=== PATIENT | female | born 1985 | race Caucasian/White ===

== ENCOUNTER → 2017-06-16 | Outpatient (CLI) | payer BC ==
[2017-06-16 15:10] LABS: CH 29.2; CHCM 33.2; HCT 39.7 % (34.0-46.0); HDW 2.25; HGB 12.9 gm/dL (11.4-16.0); MCH 28.7 pg (25.0-35.0); MCHC 32.4 g/dL (31.0-37.0); MCV 88.4 fL (80.0-100.0); Mean Platelet Volume 8.7; RDW 13.3 % (11.5-15.5); WBC 10.3 k/uL (3.8-10.6)
[2017-06-16 15:14] LABS: ALT 31 U/L (9-52); AST 20 U/L (14-36); Alkaline Phosphatase 59 U/L (38-126); Bilirubin, Delta 0.2 mg/dL (0.0-0.2); Glucose 85 mg/dL (74-99); Non-African American GFR(MDRD) >60 (>60 ml/min/1.73 sqM); Total Bilirubin 0.2 mg/dL (0.2-1.3); Total Protein 6.9 g/dL (6.3-8.2)
[2017-06-16 15:45] LABS: Hepatitis B Surface Ag Index 0.05
[2017-06-16 19:39] LABS: Treponemal Ab Non-Reactive (Non-Reactive)
== END | disposition home or self-care (01) ==
LOC: LABWHC1 14:04
PROVIDERS: ATTEND Obstetrics & Gynecology
DX: O26.811 Pregnancy related exhaustion and fatigue, first trimester (principal); Z3A.00 Weeks of gestation of pregnancy not specified
CPT/HCPCS: 36415; 80076; 82565; 82947; 85027; 86762; 86780; 86850; 86900; 86901; 87340; 87390

== ENCOUNTER → 2017-06-29 | Outpatient (CLI) | payer BC ==
[2017-06-29 14:09] LABS: ALT 31 U/L (9-52); AST 21 U/L (14-36); Alkaline Phosphatase 52 U/L (38-126); Bilirubin, Delta 0.1 mg/dL (0.0-0.2); LDH 365 U/L (313-618); Non-African American GFR(MDRD) >60 (>60 ml/min/1.73 sqM); Total Bilirubin 0.2 mg/dL (0.2-1.3); Total Protein 6.8 g/dL (6.3-8.2); Uric Acid 3.2 mg/dL (3.7-7.4)
== END | disposition home or self-care (01) ==
LOC: LABWHC1 13:30
PROVIDERS: ATTEND Obstetrics & Gynecology
DX: O10.919 Unspecified pre-existing hypertension complicating pregnancy, unspecified trimester (principal); Z3A.00 Weeks of gestation of pregnancy not specified
CPT/HCPCS: 36415; 80076; 81050; 82565; 83615; 84156; 84550

== ENCOUNTER → 2018-10-23 | Outpatient (CLI) | payer BC ==
--- NOTE | 2018-10-23 15:57 | US ---
EXAMINATION TYPE: US thyroid st tissue head/neck DATE OF EXAM: 10/23/2018 COMPARISON: NONE CLINICAL HISTORY: E04.1 SINGLE THYROID NODULE. Family history of thyroid CA GLAND SIZE: Right Lobe: 5.0 x 1.6 x 1.9 cm Overall Parenchyma: homogenous Left Lobe: 5.0 x 1.5 x 1.5 cm Overall Parenchyma: homogeneous Isthmus Thickness: 0.2 cm NODULES RIGHT: # of nodules measured on right: 0 LEFT: # of nodules measured on left: 0 ISTHMUS: # of nodules measured in the isthmus: 0 Bilateral neck scanned, no evidence of lymphadenopathy. Homogeneous normal-sized thyroid is identified without discrete nodules. IMPRESSION: As above, unremarkable study.
== END | disposition home or self-care (01) ==
LOC: RADUSWWP 15:31
PROVIDERS: ATTEND Family Medicine
DX: E04.1 Nontoxic single thyroid nodule (principal)
CPT/HCPCS: 76536

== ENCOUNTER 2020-09-02 01:56 | Emergency (ER) | payer BC ==
[2020-09-02] MEDS ORDERED: SODIUM CHLORIDE 0.9% 1,000 ML IV STA (02:16)
[2020-09-02] MEDS ORDERED: ONDANSETRON 4 MG/2 ML VIAL IVP STA (02:16)
[2020-09-02] MEDS ORDERED: KETOROLAC 15 MG/ML 1 ML VIAL IVP STA (02:20)
--- NOTE | 2020-09-02 02:35 | ED ---
General Adult HPI - General Source: patient Mode of arrival: ambulatory Limitations: no limitations <Tenisha Tamez - Last Filed: 09/02/20 02:50> <Santi Amado - Last Filed: 09/02/20 04:46> - General Chief complaint: Abdominal Pain Stated complaint: Fever, abdominal pain Time Seen by Provider: 09/02/20 02:06 - History of Present Illness Initial comments: 34-year-old female presents to the emergency Department with complaints of left upper quadrant abdominal pain she describes as a pressure, onset yesterday morning. Patient states she woke up with mild discomfort under her ribs that waxed and waned throughout the day. States Motrin did help with her pain, however she developed a fever this evening (T-max 102.1), and also has left lower quadrant abdominal pain as well. Additionally, patient does report heartburn and mild nausea. Patient denies any recent rash, chills, cough, shortness of breath, chest pain, vomiting, diarrhea, constipation, numbness, tingling, dizziness, weakness, hematuria, dysuria, urinary urgency, urinary frequency, headache, visual changes, or any other complaints. (Tenisha Tamez) - Related Data Home Medications Medication Instructions Recorded Confirmed Omeprazole [PriLOSEC] 20 mg PO HS 02/04/16 01/03/18 Multivitamin [Multivitamins Adult 1 each PO DAILY 01/03/18 01/03/18 Gummies] Previous Rx's Medication Instructions Recorded Ibuprofen [Motrin] 600 mg PO Q6HR PRN #40 tab 01/05/18 Amoxic-Pot Clav 875-125Mg 1 tab PO Q12HR 1 Days #14 tab 09/02/20 [Augmentin 875-125] Allergies Allergy/AdvReac Type Severity Reaction Status Date / Time No Known Allergies Allergy Verified 09/02/20 02:03 Review of Systems ROS Other: All systems not noted in ROS Statement are negative. <Tenisha Tamez - Last Filed: 09/02/20 02:50> ROS Other: All systems not noted in ROS Statement are negative. <Santi Amado - Last Filed: 09/02/20 04:46> ROS Statement: Those systems with pertinent positive or pertinent negative responses have been documented in the HPI. Past Medical History Past Medical History: Hypertension Additional Past Medical History / Comment(s): Patient has a history of hypertension prepregnancy. Was not on any medications until approximately 32 weeks' gestation History of Any Multi-Drug Resistant Organisms: None Reported Past Surgical History: Adenoidectomy, Tonsillectomy Past Anesthesia/Blood Transfusion Reactions: No Reported Reaction Past Psychological History: Depression Smoking Status: Never smoker Past Alcohol Use History: Occasional Past Drug Use History: None Reported - Past Family History Father Family Medical History: Hypertension <Tenisha Tamez - Last Filed: 09/02/20 02:50> General Exam Limitations: no limitations (Well-developed, well-nourished female in no acute distress. Initial temperature 99.3F, pulse 139, respirations 20, blood pressure 158/92, pulse ox 97% on room air.) General appearance: alert, in no apparent distress Respiratory exam: Present: normal lung sounds bilaterally. Absent: respiratory distress, wheezes, rales, rhonchi, stridor Cardiovascular Exam: Present: regular rate, tachycardia, normal heart sounds. Absent: systolic murmur, diastolic murmur, rubs, gallop, clicks GI/Abdominal exam: Present: soft, tenderness (Diffuse left lower quadrant tenderness upon palpation), normal bowel sounds. Absent: distended Neurological exam: Present: alert, oriented X3, CN II-XII intact Psychiatric exam: Present: normal affect, normal mood Skin exam: Present: warm, dry, intact, normal color. Absent: rash <Tenisha Tamez - Last Filed: 09/02/20 02:50> Course Vital Signs 09/02/20 01:59 Temperature 99.3 F Pulse Rate 139 H Respiratory 20 Rate Blood Pressure 158/92 O2 Sat by Pulse 97 Oximetry Medical Decision Making <Tenisha Tamez - Last Filed: 09/02/20 02:50> - Lab Data Result diagrams: 09/02/20 03:11 09/02/20 03:11 <Santi Amado - Last Filed: 09/02/20 04:46> - Medical Decision Making 34 year-old female patient presents to the emergency department today for eval uation of left sided abdominal pain and fever. She reported a couple episodes of diarrhea over the last couple of days. States pain is worsened throughout the day. Also reports had a temperature 102.0F this evening. Labs and CT ordered. Care will be handed over to my attending Dr. Amado for management until disposition. (Tenisha Tamez) I saw this patient in conjunction with the nurse practitioner. I performed independent history and physical exam. Agree with case management. I discussed the results with the patient who states she is feeling a bit better following analgesic. Discussed admission versus outpatient follow-up and at this point the patient will prefer to follow up as outpatient. We did start antibiotic here for possibility of infectious colitis. Discussed appropriate further care and follow-up as well as return parameters. (Santi Amado) - Lab Data Lab Results 09/02/20 09/02/20 09/02/20 Range/Units 03:11 03:11 03:11 WBC 15.1 H (3.8-10.6) k/uL RBC 4.83 (3.80-5.40) m/uL Hgb 13.5 (11.4-16.0) gm/dL Hct 41.5 (34.0-46.0) % MCV 86.1 (80.0-100.0) fL MCH 28.0 (25.0-35.0) pg MCHC 32.5 (31.0-37.0) g/dL RDW 12.6 (11.5-15.5) % Plt Count 217 (150-450) k/uL MPV 8.5 Neutrophils % 78 % Lymphocytes % 14 % Monocytes % 5 % Eosinophils % 1 % Basophils % 1 % Neutrophils # 11.8 H (1.3-7.7) k/uL Lymphocytes # 2.0 (1.0-4.8) k/uL Monocytes # 0.8 (0-1.0) k/uL Eosinophils # 0.2 (0-0.7) k/uL Basophils # 0.1 (0-0.2) k/uL Sodium 139 (137-145) mmol/L Potassium 4.2 (3.5-5.1) mmol/L Chloride 105 (98-107) mmol/L Carbon Dioxide 26 (22-30) mmol/L Anion Gap 8 mmol/L BUN 12 (7-17) mg/dL Creatinine 0.68 (0.52-1.04) mg/dL Est GFR (CKD-EPI)AfAm >90 (>60 ml/min/1.73 sqM) Est GFR (CKD-EPI)NonAf >90 (>60 ml/min/1.73 sqM) Glucose 105 H (74-99) mg/dL Calcium 9.3 (8.4-10.2) mg/dL Total Bilirubin 0.6 (0.2-1.3) mg/dL AST 24 (14-36) U/L ALT 27 (4-34) U/L Alkaline Phosphatase 63 (38-126) U/L Total Protein 7.4 (6.3-8.2) g/dL Albumin 4.3 (3.5-5.0) g/dL Lipase 100 (23-300) U/L Urine Color Light Yellow Urine Appearance Clear (Clear) Urine pH 7.5 (5.0-8.0) Ur Specific [place] 1.010 (1.001-1.035) Urine Protein Negative (Negative) Urine Glucose (UA) Negative (Negative) Urine Ketones Negative (Negative) Urine Blood Negative (Negative) Urine Nitrite Negative (Negative) Urine Bilirubin Negative (Negative) Urine Urobilinogen <2.0 (<2.0) mg/dL Ur Leukocyte Esterase Negative (Negative) Urine HCG, Qual (Not Detectd) Coronavirus (PCR) (Not Detectd) 09/02/20 09/02/20 Range/Units 03:11 03:15 WBC (3.8-10.6) k/uL RBC (3.80-5.40) m/uL Hgb (11.4-16.0) gm/dL Hct (34.0-46.0) % MCV (80.0-100.0) fL MCH (25.0-35.0) pg MCHC (31.0-37.0) g/dL RDW (11.5-15.5) % Plt Count (150-450) k/uL MPV Neutrophils % % Lymphocytes % % Monocytes % % Eosinophils % % Basophils % % Neutrophils # (1.3-7.7) k/uL Lymphocytes # (1.0-4.8) k/uL Monocytes # (0-1.0) k/uL Eosinophils # (0-0.7) k/uL Basophils # (0-0.2) k/uL Sodium (137-145) mmol/L Potassium (3.5-5.1) mmol/L Chloride (98-107) mmol/L Carbon Dioxide (22-30) mmol/L Anion Gap mmol/L BUN (7-17) mg/dL Creatinine (0.52-1.04) mg/dL Est GFR (CKD-EPI)AfAm (>60 ml/min/1.73 sqM) Est GFR (CKD-EPI)NonAf (>60 ml/min/1.73 sqM) Glucose (74-99) mg/dL Calcium (8.4-10.2) mg/dL Total Bilirubin (0.2-1.3) mg/dL AST (14-36) U/L ALT (4-34) U/L Alkaline Phosphatase (38-126) U/L Total Protein (6.3-8.2) g/dL Albumin (3.5-5.0) g/dL Lipase (23-300) U/L Urine Color Urine Appearance (Clear) Urine pH (5.0-8.0) Ur Specific [place] (1.001-1.035) Urine Protein (Negative) Urine Glucose (UA) (Negative) Urine Ketones (Negative) Urine Blood (Negative) Urine Nitrite (Negative) Urine Bilirubin (Negative) Urine Urobilinogen (<2.0) mg/dL Ur Leukocyte Esterase (Negative) Urine HCG, Qual Not Detected (Not Detectd) Coronavirus (PCR) Not Detected (Not Detectd) Disposition <Tenisha Tamez - Last Filed: 09/02/20 02:50> Is patient prescribed a controlled substance at d/c from ED?: No <Santi Amado - Last Filed: 09/02/20 04:46> Clinical Impression: Abdominal pain, Colitis Disposition: HOME SELF-CARE Condition: Good Instructions (If sedation given, give patient instructions): Abdominal Pain (ED), Colitis (ED) Prescriptions: Amoxic-Pot Clav 875-125Mg [Augmentin 875-125] 1 tab PO Q12HR 1 Days #14 tab Referrals: Ezra Hensley MD [Primary Care Provider] - 1-2 days Marlee Rubin MD [STAFF PHYSICIAN] - 1-2 days
[2020-09-02 03:31] LABS: Basophils # (A) 0.1 k/uL (0-0.2); Basophils % (A) 1 %; Eosinophils # (A) 0.2 k/uL (0-0.7); Eosinophils % (A) 1 %; HCT 41.5 % (34.0-46.0); HGB 13.5 gm/dL (11.4-16.0); Lymphocytes % (A) 14 %; MCHC 32.5 g/dL (31.0-37.0); MCV 86.1 fL (80.0-100.0); Mean Platelet Volume 8.5; Monocytes # (A) 0.8 k/uL (0-1.0); Monocytes % (A) 5 %; Neutrophils # (A) 11.8 k/uL (1.3-7.7); Neutrophils % (A) 78 %; Platelet Count 217 k/uL (150-450); RBC 4.83 m/uL (3.80-5.40); RDW 12.6 % (11.5-15.5); WBC 15.1 k/uL (3.8-10.6)
[2020-09-02 03:32] LABS: Appearance,Urine Clear (Clear); Bilirubin,Urine Negative (Negative); Blood,Urine Negative (Negative); Color,Urine Light Yellow; Glucose,Urine (UA) Negative (Negative); Ketones,Urine Negative (Negative); Leukocyte Esterase,Urine Negative (Negative); Nitrite,Urine Negative (Negative); PH, Urine 7.5 (5.0-8.0); Protein,Urine Negative (Negative); Urobilinogen,Urine <2.0 mg/dL (<2.0)
[2020-09-02 03:42] LABS: ALT 27 U/L (4-34); AST 24 U/L (14-36); African American GFR (CKD) >90 (>60 ml/min/1.73 sqM); Albumin 4.3 g/dL (3.5-5.0); Alkaline Phosphatase 63 U/L (38-126); Anion Gap 8 mmol/L; Blood Urea Nitrogen 12 mg/dL (7-17); Calcium 9.3 mg/dL (8.4-10.2); Carbon Dioxide 26 mmol/L (22-30); Chloride 105 mmol/L (98-107); Glucose 105 mg/dL (74-99); Lipase 100 U/L (23-300); Non-African American GFR(CKD) >90 (>60 ml/min/1.73 sqM); Potassium 4.2 mmol/L (3.5-5.1); Sodium 139 mmol/L (137-145); Total Bilirubin 0.6 mg/dL (0.2-1.3); Total Protein 7.4 g/dL (6.3-8.2)
--- NOTE | 2020-09-02 04:35 | CT ---
EXAM: CT Abdomen and Pelvis With Intravenous Contrast CLINICAL HISTORY: ITS.REASON CT Reason: LLQ tenderness, fever TECHNIQUE: Axial computed tomography images of the abdomen and pelvis with intravenous contrast. CTDI is 27.47 mGy and DLP is 1304.40 mGy-cm. This CT exam was performed using one or more of the following dose reduction techniques: automated exposure control, adjustment of the mA and/or kV according to patient size, and/or use of iterative reconstruction technique. COMPARISON: No relevant prior studies available. FINDINGS: Lung bases: Unremarkable. No mass. No consolidation. Mediastinum: Mild hiatal hernia. ABDOMEN: Liver: Unremarkable. No mass. Gallbladder and bile ducts: Unremarkable. No calcified stones. No ductal dilation. Pancreas: Unremarkable. No mass. No ductal dilation. Spleen: Unremarkable. No splenomegaly. Adrenals: Unremarkable. No mass. Kidneys and ureters: The kidneys symmetrically enhance. There is a 1. 1 cm right lower pole renal cyst. No hydronephrosis. Stomach and bowel: Moderate focal segment of colitis of the proximal descending colon, consisting of circumferential wall thickening spanning a distance of approximately 5.9 cm proximal-distal. Associated, moderate pericolonic fluid/induration, which is located adjacent to the left adrenal gland and posterior to the pancreas. No perforation or abscess. Mild diverticulosis, without acute diverticulitis. No small bowel obstruction. PELVIS: Appendix: Normal appendix. Bladder: Unremarkable. No mass. Reproductive: Normal CT appearance of the uterus and bilateral ovaries. ABDOMEN and PELVIS: Intraperitoneal space: Unremarkable. No free air. No significant fluid collection. Bones/joints: No acute fracture. No dislocation. Soft tissues: Small fat-containing umbilical hernia. Vasculature: Unremarkable. No abdominal aortic aneurysm. Lymph nodes: Unremarkable. No enlarged lymph nodes. IMPRESSION: 1. Moderate focal segment of colitis of the proximal descending colon, consisting of circumferential wall thickening spanning a distance of approximately 5.9 cm proximal-distal. Associated, moderate pericolonic fluid/induration, which is located adjacent to the left adrenal gland and posterior to the pancreas. No perforation or abscess. 2. Mild diverticulosis, without acute diverticulitis. No small bowel obstruction. Normal appendix. 3. Mild hiatal hernia.
[2020-09-02] MEDS ORDERED: AMOXIC-POT CLAV 875MG STARTER PACK 2 TAB BTL PO STA (04:39)
[2020-09-02 04:49] VITALS: BP 150/86; PULSE 98; RESP 18; TEMP 99
== END 2020-09-02 04:54 | disposition home or self-care (01) ==
LOC: EC 01:56
DX: K52.9 Noninfective gastroenteritis and colitis, unspecified (principal); Z79.899 Other long term (current) drug therapy; Z20.828 Contact with and (suspected) exposure to other viral communicable diseases
CPT/HCPCS: 36415; 80053; 83605; 83690; 85025; 81003; 81025; 87040; 87635; 74177; 99284; 96374; 96375; 96361; J2405; J1885; Q9967

== ENCOUNTER → 2020-09-08 | Outpatient (CLI) | payer BC ==
[2020-09-08 11:58] LABS: Basophils # (A) 0.1 k/uL (0-0.2); Basophils % (A) 1 %; Eosinophils # (A) 0.3 k/uL (0-0.7); Eosinophils % (A) 4 %; HCT 42.4 % (34.0-46.0); HGB 13.6 gm/dL (11.4-16.0); Lymphocytes # (A) 2.1 k/uL (1.0-4.8); Lymphocytes % (A) 29 %; MCH 27.7 pg (25.0-35.0); MCHC 32.1 g/dL (31.0-37.0); MCV 86.4 fL (80.0-100.0); Mean Platelet Volume 7.8; Monocytes # (A) 0.3 k/uL (0-1.0); Monocytes % (A) 4 %; Neutrophils # (A) 4.5 k/uL (1.3-7.7); Neutrophils % (A) 61 %; Platelet Count 293 k/uL (150-450); RBC 4.91 m/uL (3.80-5.40); RDW 12.6 % (11.5-15.5); WBC 7.4 k/uL (3.8-10.6)
[2020-09-08 13:28] LABS: Erythrocyte Sedimentation Rate 22 mm/hr (0-20)
[2020-09-08 19:19] LABS: Anti-DNA, DS unit <1.0 IU/mL; DNA Double-Stranded NEGATIVE (NEGATIVE)
[2020-09-08 20:43] LABS: % Iron Saturation 11.04 (12.00-45.00); ALT 22 U/L (8-44); AST 24 U/L (13-35); African American GFR (CKD) 110.7 (60.0-200.0); Albumin/Globulin Ratio 1.73 (1.60-3.17); Alkaline Phosphatase 71 U/L (41-126); BUN/Creat Ratio 11.25 Ratio (12.00-20.00); Calcium 10.1 mg/dL (8.7-10.3); Carbon Dioxide 27.7 mmol/L (21.6-31.8); Chloride 105 mmol/L (96-109); Globulin 2.6 g/dL (1.6-3.3); Glucose 84 mg/dL (70-110); Iron 36 ug/dL (50-170); Non-African American GFR(CKD) 95.5 (60.0-200.0); Potassium 4.5 mmol/L (3.5-5.5); Rheumatoid Factor, Qnt <4 IU/mL (0-13); Sodium 140 mmol/L (135-145); Total Bilirubin 0.2 mg/dL (0.3-1.2); Total Iron Binding Capacity 326 ug/dL (228-460); Total Protein 7.1 g/dL (6.2-8.2)
[2020-09-08 20:49] LABS: Ferritin 59.4 ng/mL (10.0-291.0)
[2020-09-08 21:26] LABS: Folate, Serum 14.9 ng/mL
[2020-09-09 10:40] LABS: Angiotensin-1 Converting Enz. 55 U/L (8-52)
[2020-09-09 14:26] LABS: HLA B27 NEGATIVE
== END | disposition home or self-care (01) ==
LOC: LABWHC1 10:31
PROVIDERS: ATTEND Family Medicine
DX: K52.9 Noninfective gastroenteritis and colitis, unspecified (principal); M25.50 Pain in unspecified joint; R53.83 Other fatigue
CPT/HCPCS: 36415; 80053; 82164; 82607; 82728; 82746; 83540; 83550; 83735; 84630; 85025; 85652; 86038; 86225; 86431; 86812

== ENCOUNTER 2020-10-19 09:03 | Day surgery (SDC) | payer BC ==
[2020-10-14 16:10] VITALS: BMI 33.9
[~2020-10-19 09:03] MED LIST: LACTATED RINGERS 1,000 ML IV SCH; LIDOCAINE 1% (10MG/ML) FOR IV START INTRADERMA PRN
[2020-10-19 09:31] VITALS: RESP 16; TEMP 98.9
[2020-10-19] MEDS ORDERED: fentaNYL (PF) 50 MCG/ML 2 ML AMP ONE (10:12)
[2020-10-19] MEDS ORDERED: MIDAZOLAM 2 MG/2 ML VIAL ONE (10:12)
[2020-10-19] MEDS ORDERED: LIDOCAINE 1% INJ 10MG/ML (20 ML MDV) ONE (10:12)
[2020-10-19] MEDS ORDERED: PROPOFOL 10 MG/ML 20 ML VIAL IV ONE (10:12)
--- NOTE | 2020-10-19 10:51 | P.PCN ---
Date of Procedure: 10/19/20 Description of Procedure: Brief history: Patient is a pleasant 35-year-old female presenting for outpatient colonoscopy EGD for evaluation of noninfected gastroenteritis and colitis and heartburn. She had been seen in the hospital at which time she presented complaining of nonbloody diarrhea and abdominal pain. Computed tomography scan of the abdomen showed descending colitis and left-sided diverticulosis without diverticulitis. She was treated with antibiotics and is doing better. She has a history of heartburn and will usually take [id number] antacids approximately 3 times per week. Procedure performed: Esophagogastroduodenoscopy with biopsy Colonoscopy Estimated blood loss: Minimal. Preoperative diagnosis: Heartburn, noninfective gastroenteritis and colitis Anesthesia: MAC Procedure: After informed consent was obtained from the patient was brought into the endoscopy unit and IV sedation was administered by anesthesia under continuous monitoring. Initially upper endoscopy was done. The Olympus GF 190 video endoscope was inserted into the mouth and esophagus intubated without any difficulty and was gradually advanced into the stomach and duodenum and carefully examined. The bulb and second part of the duodenum appeared normal, with biopsies taken to rule out celiac sprue. The scope was then withdrawn into the stomach adequately insufflated with air and upon careful examination the antrum and body, cardia and fundus appeared normal, except for some mild punctate erythema in the antrum and body suggestive of mild gastritis with biopsies taken. The scope was then withdrawn into the esophagus. The GE junction was located at 38 cm to the incisors, and biopsied. It appeared regular with no erythema erosions or ulcerations. Rest of the esophagus appeared normal. Patient tolerated the procedure well. At this time the patient continued to remain sedation. Initial digital rectal examination was normal. Olympus CF 190 video colonoscope was then inserted into the rectum and gradually advanced to the cecum without any difficulty. Careful examination was performed as the scope was gradually being withdrawn. The prep was excellent. The cecum, ascending colon, transverse colon, descending colon, sigmoid colon and rectum appeared normal, and normal-appearing terminal ileum. Retroflexion was performed in the rectum and no lesions were noted, low-grade internal. Patient tolerated the procedure well. Impression: 1. Mild gastritis. Biopsies of the duodenum, antrum body and GE junction. 2. Normal-appearing colon from rectum to cecum and normal-appearing terminal ileum. Recommendations: Findings of this examination were discussed with the patient. Okay to resume diet. Okay to resume medications. Await pathology from biopsies. Follow up in the GI clinic as previously scheduled for results of biopsies and further management.
[2020-10-19 11:12] VITALS: BP 103/57; PULSE 66
== END 2020-10-19 11:30 | disposition home or self-care (01) ==
LOC: ORWHC2ENDO 09:03
PROVIDERS: ATTEND Internal Medicine
DX: K29.50 Unspecified chronic gastritis without bleeding (principal); D72.10 Eosinophilia, unspecified; K21.9 Gastro-esophageal reflux disease without esophagitis; K52.9 Noninfective gastroenteritis and colitis, unspecified; K31.89 Other diseases of stomach and duodenum; Z90.89 Acquired absence of other organs
CPT/HCPCS: 81025; 88305; 45378; 43239; J2250; J2001; J3010; J2704

== ENCOUNTER → 2020-12-21 | Outpatient (CLI) | payer BC ==
[2020-12-21 08:22] LABS: C Reactive Protein 5.9 mg/L (<10.0); Calcium 9.5 mg/dL (8.4-10.2)
--- NOTE | 2020-12-21 14:53 | CT ---
EXAMINATION TYPE: CT chest w con DATE OF EXAM: 12/21/2020 COMPARISON: Chest x-ray 12/11/2020 HISTORY: chronic cough, abnormal chest xray CT DLP: 623 mGycm, Automated exposure control for dose reduction was used. CONTRAST: Performed injected with 100 mL of Isovue 300. TECHNIQUE: Axial images were obtained at 5 mm thick sections. Reconstructed images are reviewed on [employer] computer in the coronal plane. FINDINGS: Portion of the thyroid visualized is normal. No suspicious lung nodules or focal infiltrates are present. No enlarged mediastinal or hilar adenopathy is evident. The ascending aorta diameter at the level o f the main pulmonary artery is 2.7 cm. The main pulmonary artery diameter at the bifurcation is 2.3 cm. Small hiatal hernia is present. Limited CT sections are obtained through the upper abdomen. Abdomen is essentially unremarkable. IMPRESSIONS: 1. Small hiatal hernia. 2. No acute pulmonary process.
== END | disposition home or self-care (01) ==
LOC: RADCTMAIN 07:20
PROVIDERS: ATTEND Internal Medicine Critical Care Medicine
DX: K44.9 Diaphragmatic hernia without obstruction or gangrene (principal)
CPT/HCPCS: 82310; 86140; 71260; 36415; Q9967

== ENCOUNTER → 2021-05-31 | Outpatient (CLI) | payer BC ==
--- NOTE | 2021-06-02 11:01 | MM ---
Reason for exam: screening (asymptomatic). Baseline mammogram. History: Took hormonal contraceptives beginning at age 21. Physical Findings: Nurse did not find any significant physical abnormalities on exam. MG 3D Screening Mammo W/Cad Bilateral CC, MLO, and XCCL view(s) were taken. The breast tissue is heterogeneously dense. This may lower the sensitivity of mammography. Focal asymmetries bilaterally. ASSESSMENT: Benign, BI-RAD 2 RECOMMENDATION: Routine screening mammogram of both breasts in 1 year.
== END | disposition home or self-care (01) ==
LOC: RADMAMWWP 13:36
PROVIDERS: ATTEND Obstetrics & Gynecology
DX: Z12.31 Encounter for screening mammogram for malignant neoplasm of breast (principal); Z79.3 Long term (current) use of hormonal contraceptives
CPT/HCPCS: 77063; 77067

== ENCOUNTER 2024-12-12 05:13 | Emergency (ER) | payer BC ==
[2024-12-12 06:28] LABS: Basophils % (A) 0 %; Eosinophils # (A) 0.3 k/uL (0-0.7); Eosinophils % (A) 3 %; HCT 43.2 % (34.0-46.0); HGB 13.6 gm/dL (11.4-16.0); Lymphocytes # (A) 1.7 k/uL (1.0-4.8); Lymphocytes % (A) 19 %; MCH 27.6 pg (25.0-35.0); MCHC 31.5 g/dL (31.0-37.0); MCV 87.5 fL (80.0-100.0); Mean Platelet Volume 8.6; Monocytes # (A) 0.4 k/uL (0-1.0); Monocytes % (A) 4 %; Neutrophils # (A) 6.6 k/uL (1.3-7.7); Neutrophils % (A) 73 %; Platelet Count 243 k/uL (150-450); RBC 4.94 m/uL (3.80-5.40); RDW 12.7 % (11.5-15.5); WBC 9.1 k/uL (3.8-10.6)
--- NOTE | 2024-12-12 06:34 | XR ---
EXAMINATION TYPE: XR chest 2V DATE OF EXAM: 12/12/2024 CLINICAL INDICATION: Female, 39 years old with history of SOB, TECHNIQUE: Frontal and lateral views of the chest are obtained. COMPARISON: Chest CT December 21, 2020 FINDINGS: There is no focal air space opacity, pleural effusion, or pneumothorax seen. The cardiac silhouette size remains within normal limits. The osseous structures are intact. IMPRESSION: No acute cardiopulmonary process. [facility], , 12/12/2024 6:32 AM
[2024-12-12 06:38] LABS: ALT 26 U/L (4-34); AST 23 U/L (14-36); African American GFR (CKD) >90 (>60 ml/min/1.73 sqM); Albumin 4.6 g/dL (3.5-5.0); Alkaline Phosphatase 64 U/L (38-126); Anion Gap 8 mmol/L; Blood Urea Nitrogen 9 mg/dL (7-17); Calcium 9.6 mg/dL (8.4-10.2); Carbon Dioxide 26 mmol/L (22-30); Chloride 102 mmol/L (98-107); Glucose 85 mg/dL (74-99); Lipase 147 U/L (23-300); Magnesium 2.1 mg/dL (1.6-2.3); Non-African American GFR(CKD) >90 (>60 ml/min/1.73 sqM); Potassium 3.9 mmol/L (3.5-5.1); Sodium 136 mmol/L (137-145); Total Bilirubin 0.7 mg/dL (0.2-1.3); Total Protein 7.4 g/dL (6.3-8.2)
[2024-12-12 06:47] LABS: INR 0.9 (<1.2); Partial Thromboplastin Time 23.9 sec (22.0-30.0); Prothrombin Time 10.6 sec (10.0-12.5)
--- NOTE | 2024-12-12 07:01 | ED ---
Chest Pain HPI - General Chief Complaint: Chest Pain Stated Complaint: Chest Pain Time Seen by Provider: 12/12/24 05:33 Source: patient, RN notes reviewed Mode of arrival: ambulatory Limitations: no limitations - History of Present Illness Initial Comments: 39-year-old female presents emergency [place] complaint of intermittent chest discomfort last several days. Patient states it comes and goes it is worse when she lays down. Patient states she does have a history of reflux which she occasionally takes Tums for. She has not taken any for the symptoms. Patient states nothing makes it feel better or worse she denies any shortness of breath. She states she starts getting worried and she has some numbness in her left arm. Patient states she has no prior cardiac disease she has a history of gestational hypertension via no other history denies hyperlipidemia diabetes. - Related Data Home Medications Medication Instructions Recorded Confirmed Bronelain (No Dose) 1 cap PO DAILY 10/14/20 10/19/20 Calcium Carbonate [Tums] 500 - 1,000 mg PO QID PRN 10/14/20 10/19/20 Ibuprofen [Motrin Ib] 600 - 800 mg PO Q8H PRN 10/14/20 10/19/20 Allergies Allergy/AdvReac Type Severity Reaction Status Date / Time azithromycin [From Zithromax] Allergy Rash/Hives Verified 12/12/24 05:25 Review of Systems ROS Statement: Those systems with pertinent positive or pertinent negative responses have been documented in the HPI. ROS Other: All systems not noted in ROS Statement are negative. EKG Findings - EKG Comments: EKG Findings:: EKG performed at 5: 32 sinus tachycardia rate of 112 CO 128 QRS 104 QT/QTc 326/392 - EKG Results: EKG: interpreted by LIZZIE Past Medical History Past Medical History: Hypertension Additional Past Medical History / Comment(s): Pre-eclampsia, hx HTN w/ . Chronic cough, shortness of breath w/ exertion, recently told poss Sarcoidosis. Occ NT hands, poss CTS. Has hiatal hernia per scan. c/o abd pain in 09/2020. History of Any Multi-Drug Resistant Organisms: None Reported Past Surgical History: Adenoidectomy, Tonsillectomy Additional Past Surgical History / Comment(s): "VCUG as young child." Past Anesthesia/Blood Transfusion Reactions: No Reported Reaction, Motion Sickness Past Psychological History: Depression Smoking Status: Never smoker Past Alcohol Use History: Rare Past Drug Use History: None Reported - Past Family History Father Family Medical History: Hypertension Mother Family Medical History: Cancer Additional Family Medical History / Comment(s): thyroid cancer, melanoma General Exam Limitations: no limitations General appearance: alert, in no apparent distress Head exam: Present: atraumatic, normocephalic, normal inspection Eye exam: Present: normal appearance, PERRL, EOMI. Absent: scleral icterus, conjunctival injection, periorbital swelling ENT exam: Present: normal exam, normal oropharynx, mucous membranes moist Neck exam: Present: normal inspection, full ROM. Absent: tenderness, meningismus, lymphadenopathy Respiratory exam: Present: normal lung sounds bilaterally. Absent: respiratory distress, wheezes, rales, rhonchi, stridor Cardiovascular Exam: Present: normal rhythm, tachycardia, normal heart sounds. Absent: systolic murmur, diastolic murmur, rubs, gallop, clicks GI/Abdominal exam: Present: soft, normal bowel sounds. Absent: distended, tenderness, guarding, rebound, rigid Course Vital Signs 12/12/24 12/12/24 12/12/24 05:21 06:38 08:37 Temperature 98.2 F 98.4 F 98.5 F Pulse Rate 110 H 92 85 Respiratory 16 18 17 Rate Blood Pressure 151/96 131/94 116/73 O2 Sat by Pulse 100 97 97 Oximetry Chest Pain MDM - MDM Was pt. sent in by a medical professional or institution (, PA, SOFT TOP INSTALLER, urgent care, hospital, or fci...) When possible be specific @ -No Did you speak to anyone other than the patient for history (EMS, parent, family, police, friend...)? What history was obtained from this source @ -No Did you review nursing and triage notes (agree or disagree)? Why? @ -I reviewed and agree with nursing and triage notes Were old charts reviewed (outside hosp., previous admission, EMS record, old EKG, old radiological studies, urgent care reports/EKG's, fci records)? Report findings @ -No old charts were reviewed Differential Diagnosis (chest pain, altered mental status, abdominal pain women, abdominal pain men, vaginal bleeding, weakness, fever, dyspnea, syncope, headache, dizziness, GI bleed, back pain, seizure, CVA, palpatations, mental health, musculoskeletal)? @ -Differential Chest Pain: Stable Angina, Unstable Angina, STEMI, NSTEMI Aortic Dissection, Pneumothorax, Musculoskeletal, Esophageal Spasm GERD, Cholecystitis, Pancreatitis, Zoster, this is not meant to be an all-inclusive list. EKG interpreted by me (3pts min.). @ -As above X-rays interpreted by me (1pt min.). @ -Chest x-ray shows no acute cardiopulmonary process CT interpreted by me (1pt min.). @ -None done U/S interpreted by me (1pt. min.). @ -None done What testing was considered but not performed or refused? (CT, X-rays, U/S, labs)? Why? @ -None What meds were considered but not given or refused? Why? @ -None Did you discuss the management of the patient with other professionals (professionals i.e. , PA, SOFT TOP INSTALLER, lab, RT, psych nurse, protective services social worker, hedge fund accountant, teacher, state patrol officer, child welfare caseworker)? Give summary @ -No Was smoking cessation discussed for >3mins.? @ -No Was critical care preformed (if so, how long)? @ -No Were there social determinants of health that impacted care today? How? (Homelessness, low income, unemployed, alcoholism, drug addiction, transport ation, low edu. Level, literacy, decrease access to med. care, prison, rehab)? @ -No Was there de-escalation of care discussed even if they declined (Discuss DNR or withdrawal of care, Hospice)? DNR status @ -No What co-morbidities impacted this encounter? (DM, HTN, Smoking, COPD, CAD, Cancer, CVA, ARF, Chemo, Hep., AIDS, mental health diagnosis, sleep apnea, morbid obesity)? @ -GERD Was patient admitted / discharged? Hospital course, mention meds given and route, prescriptions, significant lab abnormalities, going to OR and other pertinent info. @ -Charge patient's work including labs, EKG and chest x-ray unremarkable. Patient's symptoms are intermittent and atypical have been present for a few days. Patient's symptoms are more related to reflux offered prescription patient states she has omeprazole Pepcid that she should be taking but has not been taking or restart this follow-up PCP and return parameters tyson. Undiagnosed new problem with uncertain prognosis? @ -No Drug Therapy requiring intensive monitoring for toxicity (Heparin, Nitro, Insulin, Cardizem)? @ -No Were any procedures done? @ -No Diagnosis/symptom? @ -Atypical chest pain, GERD Acute, or Chronic, or Acute on Chronic? @ -Acute Uncomplicated (without systemic symptoms) or Complicated (systemic symptoms)? @ -Uncomplicated Side effects of treatment? @ -No Exacerbation, Progression, or Severe Exacerbation? @ -No Poses a threat to life or bodily function? How? (Chest pain, USA, CT, pneumonia, PE, COPD, DKA, ARF, appy, cholecystitis, CVA, Diverticulitis, Homicidal, Suicidal, threat to staff... and all critical care pts) @ -No Disposition Clinical Impression: Chest pain, atypical, GERD (gastroesophageal reflux disease) Disposition: HOME SELF-CARE Condition: Stable Instructions (If sedation given, give patient instructions): Diet for Stomach Ulcers and Gastritis (ED), GERD (Gastroesophageal Reflux Disease) (ED) Additional Instructions: Please return to the Emergency Department if symptoms worsen or any other concerns. Is patient prescribed a controlled substance at d/c from ED?: No Referrals: Ezra Hensley MD [Primary Care Provider] - 1-2 days Time of Disposition: 08:05
[2024-12-12 08:39] VITALS: BP 116/73; PULSE 85; RESP 17; TEMP 98.5
== END 2024-12-12 08:13 | disposition home or self-care (01) ==
LOC: EC 05:13
DX: R07.89 Other chest pain (principal); K21.9 Gastro-esophageal reflux disease without esophagitis
CPT/HCPCS: 36415; 71046; 80053; 83690; 83735; 84484; 85025; 85379; 85610; 85730; 93005; 99285